=== PATIENT | female | born 1955 | race Caucasian/White ===

== ENCOUNTER 2025-08-22 08:52 | Observation (INO) ==
--- NOTE | 2025-08-22 09:45 | Emergency Department Note ---
Impression & Plan BREWSTER (dyspnea on exertion), Palpitation, Fatigue, Elevated troponin ED Provider Note ED Provider Note NAME: JOHNNIE SERRANO AGE:70 SEX: Female : 1955 ARRIVES VIA: Private vehicle INFORMANT: Patient ED PROVIDER(s): Jazmyn Armenta DO CHIEF COMPLAINT: Shortness of breath, palpitations, fatigue HPI: This is a 70-year-old female who presents emergency department complaining x 3 days and increased shortness of breath with any exertion, increased fatigue and generalized weakness Has a sense of palpitations. Patient denies any overt chest pain or pressure. Patient states she has had prior similar episodes and has been evaluated by cardiology. Patient states she had a stress test done about a year ago. She has also previously worn a heart monitor. Patient states she also has a history of blood clots and does take Eliquis daily. She denies any recent fevers, chills, or URI symptoms. She has no recent leg swelling, no recent travel. No change in bowel or bladder function. Patient states yesterday she did note some discomfort across her upper shoulders bilaterally. PAST MEDICAL HISTORY:See Below PAST SURGICAL HISTORY:See Below FAMILY HISTORY:See Below SOCIAL HISTORY:See Below HOME MEDICATIONS:See Below ALLERGIES:See Below VITALS:See Below PHYSICAL EXAMINATION: GENERAL: alert, well appearing, well nourished, no distress, non-toxic EYE EXAM: normal conjunctiva, PERRL and EOM's grossly intact OROPHARYNX: no exudate, no erythema, lips, buccal mucosa, and tongue normal and mucous membranes are moist NECK: supple, no nuchal rigidity, no adenopathy, non-tender, FROM LUNGS: Clear to auscultation. Normal chest wall mechanics, no w/r/r HEART: no murmurs, S1 normal and S2 normal, no reproducible pain with palpation ABDOMEN: abdomen soft, non-tender, normo-active bowel sounds, no masses, no rebound or guarding. SKIN: no rashes, petechiae, orbruising UPPER EXTREMITIES: upper extremities are grossly normal. FROM, nml pulses b/l. LOWER EXTREMITIES: No pitting edema. FROM, nml pulses b/l. NEURO EXAM: Normal sensorium, cranial nerves II-XII grossly intact, normal speech, no facial droop,nogross weakness of arms, no gross weakness of legs. Gross sensation intact. No ataxia. Vital Signs: reviewed and remarkable Differential Diagnosis: pneumonia, bronchitis, COPD/Asthma exacerbation, pneumothorax, pulmonary embolism, congestive heart failure, acute coronary syndrome, as well as others were considered MEDICAL DECISION MAKING: This is a 70-year-old female who presents to the Emergency Department with 3 days of exertional dyspnea, palpitations, and fatigue. Patient does follow with cardiology. She was afebrile and vital signs were stable. Labs drawn and sent, IV established, EKG and CXR performed and interpreted at bedside, and patient placed on telemetry. Patient with no symptoms while at rest. I did review outpatient nuclear stress test from a year ago. No acute EKG changes noted. First troponin noted to be mildly elevated. Patient updated on all results, repeat troponin drawn and sent and was already downtrending however given risk factors, prior slight abnormality noted on the nuclear stress test, and difficulty evaluating for any EKG changes due to the known right bundle branch block, case was discussed with on-call [facility] cardiology who did come to bedside and evaluate the patient as well. Cardiology recommended further inpatient evaluation and likely need for cardiac catheterization. Patient is in agreement with this plan. Discussed with the hospitalist team for inpatient mgmt. Consultation(s): 1300: Discussed with Dr. Green, cardiology. 1336: Discussed with Dr. Green who came and evaluated the patient at bedside. 1358: Discussed with [facility] hospitalist team, for additional evaluation and mgmt. ER Treatment Provided: See below Diagnostics Interpreted By Me: -ECG: Normal sinus at 76, right axis, left bundle branch block, nonspecific ST/T wave changes, EKG unchanged from April 02, 2024 -Cardiac Monitoring: An order was placed for continuous cardiac monitoring. The monitor shows a rate of 78 with normal sinus rhythm. -Laboratory studies: As stated above and show below. -Imaging studies: X-ray Chest: A single view study of the chest was reviewed and was negative for cardiomegaly, focal infiltrate, effusion, pulmonary edema, or wide mediastinum. Triage Nursing Note Reviewed Prior/Outside Records Reviewed - cardiology office note from June 2025 reviewed Past Med/Surg History Problem List (Updated 08/22/25 @ 14:54 by Jazmyn Armenta DO) Elevated troponin (Acute) Fatigue (Acute) Palpitation (Acute) BREWSTER (dyspnea on exertion) (Acute) Medical History LBBB (left bundle branch block) Paroxysmal atrial fibrillation Dyslipidemia History of DVT (deep vein thrombosis) History of TIA (transient ischemic attack) Essential hypertension Prediabetes PVCs (premature ventricular contractions) Rosacea MAHAMED (stress urinary incontinence, female) Surgical History S/P wisdom tooth extraction S/P breast biopsy S/P tonsillectomy Family History Mother Stroke Other Breast cancer Lung cancer Social History Smoking Status: Former smoker Preferred Language: Portuguese Feels Safe at Home: Yes Home Meds Home Medications Medication Instructions Recorded Confirmed apixaban 5 mg tablet (Eliquis) 5 mg PO HS 08/22/25 08/22/25 atorvastatin 10 mg tablet 10 mg PO QAM 08/22/25 08/22/25 bimatoprost 0.01 % eye drops 1 drp ophthalmic (eye) HS 08/22/25 08/22/25 (Lumigan) brimonidine 0.1 % eye drops 1 drp ophthalmic (eye) BID 08/22/25 08/22/25 fluticasone propionate 50 2 spray intranasal DAILY 08/22/25 08/22/25 mcg/actuation nasal spray,suspension losartan 50 mg-hydrochlorothiazide 1 tab PO QAM 08/22/25 08/22/25 12.5 mg tablet Results & Data (ED) Vital Signs Vital Signs - 24 hr 08/22/25 08:58 08/22/25 09:21 08/22/25 09:36 Temperature 36.6 C Temperature Source Temporal Artery Scan Pulse Rate 86 75 Pulse Rate [Apical] Respiratory Rate 14 Respiratory Effort / Characteristics Respiratory Depth Respiratory Pattern Blood Pressure 134/83 Blood Pressure [Right Arm] Blood Pressure Mean 100 Blood Pressure Mean [Right Arm] Pulse Oximetry 96 98 Oxygen Delivery Method Room Air Room Air Sepsis New/Unexplained Change in Mental Status No Sepsis Action Taken by Nursing No Action Required 08/22/25 11:00 08/22/25 13:51 08/22/25 14:39 Temperature Temperature Source Pulse Rate 79 71 Pulse Rate [Apical] 72 Respiratory Rate 16 17 Respiratory Effort / Characteristics Non-Labored Spontaneous Respiratory Depth Normal Respiratory Pattern Regular Blood Pressure 196/91 H Blood Pressure [Right Arm] 149/97 H Blood Pressure Mean Blood Pressure Mean [Right Arm] 114 Pulse Oximetry 96 96 Oxygen Delivery Method Room Air Sepsis New/Unexplained Change in Mental Status Sepsis Action Taken by Nursing Laboratory Data 08/22/25 09:15 08/22/25 09:15 Lab Results 08/22/25 08/22/25 Range/Units 09:15 11:55 WBC 3.71 L (4.8-10.8) K/ul RBC 4.16 L (4.20-5.40) M/uL Hgb 12.6 (12.0-16.0) g/dL Hct 37.5 (37.0-47.0) % MCV 90.1 (80.0-100.0) fL MCH 30.3 (25.0-34.0) pg MCHC 33.6 (32.0-36.0) g/dL RDW Std Deviation 43.1 (36.4-46.3) fL RDW Coeff of Jovon 13.0 (11.5-14.5) % Plt Count 198 (130-400) K/uL MPV 9.8 (9.4-12.4) fL Immature Gran % (Auto) 0.5 % Neut % (Auto) 63.6 % Lymph % (Auto) 23.2 % [place] % (Auto) 10.0 % Eos % (Auto) 2.2 % Baso % (Auto) 0.5 % Neut # (Auto) 2.36 (1.40-6.50) K/uL Lymph # (Auto) 0.86 L (1.20-3.40) K/uL [place] # (Auto) 0.37 (0.11-0.59) K/uL Eos # (Auto) 0.08 (0.00-0.50) K/uL Baso # (Auto) 0.02 (0.00-0.20) K/uL Immature Gran # (Auto) 0.02 (0.01-0.20) K/uL PT 10.7 (9.0-12.0) Seconds INR 1.0 (0.9-1.1) Sodium 137 (136-145) mmol/L Potassium 4.1 (3.5-5.1) mmol/L Chloride 101 (98-107) mmol/L Carbon Dioxide 28 (21-32) mmol/L Anion Gap 8 (3-11) BUN 16 (6-23) mg/dl Creatinine 0.76 (0.6-1.2) mg/dl Est Cr Clr Drug Dosing 65.6 ml/min eGFR 83.20 BUN/Creatinine Ratio 21.1 H (10-20) Glucose 140 H (70-99(Fasting)) mg/dl Calcium 9.4 (8.6-10.3) mg/dl Magnesium 2.1 (1.7-2.4) mg/dl Total Bilirubin 0.5 (0.2-1.0) mg/dl AST 23 (13-39) U/L ALT 24 (7-52) U/L Alkaline Phosphatase 73 (34-104) U/L Troponin I High Sens 32.5 H 29.9 H (0-14) pg/ml Total Protein 7.4 (6.0-8.3) gm/dl Albumin 4.5 (3.4-5.0) gm/dl Globulin 2.9 (2.5-4.0) gm/dl Albumin/Globulin Ratio 1.6 (0.9-2) Lipase 26 (11-82) U/L TSH 2.391 (0.300-4.500) uIu/ml Imaging Data Radiologist's Impression: Chest X-Ray 08/22/25 09:30 SINGLE VIEW CHEST CLINICAL HISTORY: Dyspnea FINDINGS: An AP, portable, upright chest radiograph is obtained. No prior studies are available for comparison at the time of dictation. The heart is mildly enlarged. The pulmonary vasculature is noncongested. Nonspecific interstitial thickening is likely chronic. There is mild bibasilar scarring/atelectasis. No airspace consolidation or large pleural effusion is identified. No pneumothorax is seen. The skeletal structures are osteopenic. The bony thorax is grossly intact. IMPRESSION: No acute cardiopulmonary abnormality is identified. ACT 112: Negative or not required by law. Electronically signed by: Evaristo Guzman M.D. 08/22/2025 10:28 AM Discharge Plan Visit Data Chief Complaint: Cardiac Assessment Stated Complaint: HEART ISSUES, REF BY DOC ED Provider: Jazmyn Armenta Discharge Problem: BREWSTER (dyspnea on exertion), Palpitation, Fatigue, Elevated troponin Patient Disposition: Being Evaluated by Hospitalist Condition: Fair Discharge Instructions Interventions: ED Discharge Assessment Last Done: 08/22/25 14:39 Forms Stand Alone Forms: [facility] Prescriptions Prescriptions: No Action atorvastatin 10 mg tablet 10 mg PO QAM losartan-hydrochlorothiazide 50-12.5 mg tablet 1 tab PO QAM fluticasone propionate 50 mcg/actuation spray,suspension 2 spray INTRANASAL DAILY brimonidine 0.1 % drops 1 drp ophthalmic (eye) BID Lumigan 0.01 % drops 1 drp ophthalmic (eye) HS Eliquis 5 mg tablet 5 mg PO HS Referrals Referrals: PCP,NO [Physician] -
[2025-08-22 09:49] LABS: Hematocrit (blood only) 37.5 % (37.0-47.0); Hemoglobin 12.6 g/dL (12.0-16.0); Immature Granulocytes # (auto) 0.02 K/uL (0.01-0.20); Immature Granulocytes % (auto) 0.5 %; Mean Corpuscular Hemoglobin 30.3 pg (25.0-34.0); Mean Corpuscular Volume 90.1 fL (80.0-100.0); Platelet Count 198 K/uL (130-400); RDW Standard Deviation 43.1 fL (36.4-46.3); Red Blood Count 4.16 M/uL (4.20-5.40); White Blood Count 3.71 K/ul (4.8-10.8)
[2025-08-22 09:57] LABS: Alanine Aminotransferase 24.0 U/L (7-52); Albumin Globulin Ratio 1.6 (0.9-2); Albumin Level 4.5 gm/dl (3.4-5.0); Alkaline Phosphatase 73.0 U/L (34-104); Anion Gap 8.0 (3-11); Bilirubin,Total 0.5 mg/dl (0.2-1.0); Blood Urea Nitrogen 16.0 mg/dl (6-23); Calcium 9.4 mg/dl (8.6-10.3); Carbon Dioxide 28.0 mmol/L (21-32); Chloride 101.0 mmol/L (98-107); Creatinine Clr Calc Pharmacy 65.6 ml/min; Globulin 2.9 gm/dl (2.5-4.0); Glucose 140.0 mg/dl (70-99(Fasting)); Lipase 26.0 U/L (11-82); Magnesium 2.1 mg/dl (1.7-2.4); Potassium 4.1 mmol/L (3.5-5.1); Sodium 137.0 mmol/L (136-145); Total Protein 7.4 gm/dl (6.0-8.3)
[2025-08-22 10:12] LABS: Thyroid Stimulating Hormone 2.391 uIu/ml (0.300-4.500)
[2025-08-22 10:20] LABS: INR 1.0 (0.9-1.1); Prothrombin Time 10.7 Seconds (9.0-12.0)
--- NOTE | 2025-08-22 10:29 | XRay Report ---
SINGLE VIEW CHEST CLINICAL HISTORY: Dyspnea FINDINGS: An AP, portable, upright chest radiograph is obtained. No prior studies are available for c omparison at the time of dictation. The heart is mildly enlarged. The pulmonary vasculature is noncon gested. Nonspecific interstitial thickening is likely chronic. There is mild bibasilar scarring/atele ctasis. No airspace consolidation or large pleural effusion is identified. No pneumothorax is seen. T he skeletal structures are osteopenic. The bony thorax is grossly intact. IMPRESSION: No acute cardiopulmonary abnormality is identified. ACT 112: Negative or not required by law. Electronically signed by: Evaristo Guzman M.D. 08/22/2025 10:28 AM
--- NOTE | 2025-08-22 14:07 | History & Physical Report ---
Date of Service August 22, 2025 Assessment & Plan (1) BREWSTER (dyspnea on exertion): (2) Palpitation: (3) Elevated troponin: (4) Fatigue: (5) LBBB (left bundle branch block): (6) Paroxysmal atrial fibrillation: (7) Dyslipidemia: (8) Essential hypertension: Plan This is a 70 y/o female with HTN, dyslipidemia, PAF on chronic AC ([id number] score of 5), hx TIA, hx DVT, prediabetes, and other history as outlined below who presented to the ED today with exertional dyspnea, chest pressure and palpitations that have worsened over the last three days. Pt had a cardiac work- up negative for acute ischemia about a year ago but notes evolution of her symptoms since then. Initial troponin in the ED was 32.5, repeat 29.9. EKG personally reviewed, shows known LBBB, NSR at present, no acute ischemic changes noted. ED physician discussed case with cardiology who evaluated the patient and recommended admission for monitoring and probable cardiac cath tomorrow. Clinical picture concerning for unstable angina #Exertional dyspnea - worsening #Chest discomfort/pressure #Mildly elevated troponin - Admit to PCU - Cardiology consulted noted and appreciated - Hold Eliquis tonight and tomorrow AM, NPO after midnight for planned cardiac cath tomorrow - Trend troponin - Lipid panel, A1c in the AM - Beta-amna added by cardiology - AM labs - CBC, BMP - Update ECHO #Paroxysmal atrial fibrillation - Anticoagulation on hold for cardiac cath tomorrow - Cardiology following #Dyslipidemia - Lipid panel in the AM - Continue statin #Hypertension - Chronic, medications being adjusted - continue to monitor Pt seen and reviewed with collaborating physician, Dr. Staples. Plan of care discussed and as outlined above. Code status: full code DVT prophylaxis: SCDs for now, Eliquis on hold due to cath tomorrow Josephine Valdez PA-C History of Present Illness Chief Complaint: palpitations, short of breath with exertion Primary Care Provider: Tono Shepard DO This is a 70 y/o female with HTN, dyslipidemia, PAF on chronic AC ([id number] score of 5), hx TIA, hx DVT, prediabetes, and other history as outlined below who presented to the ED today with exertional dyspnea, chest pressure and palpitations. Pt reports originally starting with intermittent dyspnea with stairs several months ago, for which she had a nuclear stress test that was negative for ischemia. Since then, symptoms have been slowly progressive, but ma inly with exertion. She has noted that she is walking for exercise less frequently due to her symptoms. Over the last three days, she has noticed a significant worsening of symptoms, specifically reporting almost constant chest pressure and discomfort though it does worsen with exertion. She has also had episodes of palpitations with irregular heartbeat and racing heart (rate last night in the 110s). Symptoms have been worse at night and have interfered with her sleep, which she attributes to being more aware of the symptoms and thus anxious about them. She has also noticed that she has felt hot the last few nights. She denies sharp chest pain, dizziness, syncope, nausea, edema, or orthopnea. She notes a mild cough over the last week but is unsure it is related as she has chronic issues with allergies and sinus drainage. Her father of an UT but it was attributed to a viral infection. No other known history of heart disease in the family. Pharmacologic Nuclear Stress Report 07/30/24 - negative for inducible ischemia, normal myocardial thickening and wall motion, LVEF 53% ECHO 06/18/24 - normal LV cavity size, LV wall thickness moderately increased (concentric), LV outflow tract is narrowed but nonobstructive, septal motion is abnormal c/w LBBB, regional LV wall motion o/w normal, LVEF 60-64%, mildly abnormal LV diastolic function (grade I), mild aortic valve sclerosis, trace mitral insufficiency Allergies Allergy/AdvReac Type Severity Reaction Status Date / Time mupirocin Allergy Rash Verified 08/22/25 15:08 nickel Allergy Itching Verified 08/22/25 15:04 mussels AdvReac Vomiting Verified 08/22/25 15:04 Home Medications Medication Instructions Recorded Confirmed Type apixaban 5 mg tablet (Eliquis) 5 mg PO BID 08/22/25 08/22/25 History atorvastatin 10 mg tablet 10 mg PO QAM 08/22/25 08/22/25 History bimatoprost 0.01 % eye drops 1 drp OPB HS 08/22/25 08/22/25 History (Maged) brimonidine 0.1 % eye drops 1 drp OPB BID 08/22/25 08/22/25 History fluticasone propionate 50 2 spray intranasal DAILY 08/22/25 08/22/25 History mcg/actuation nasal spray,suspension loratadine 10 mg tablet 10 mg PO HS 08/22/25 08/22/25 History losartan 50 mg-hydrochlorothiazide 1 tab PO QAM 08/22/25 08/22/25 History 12.5 mg tablet Past Med/Surg History Problem List (Updated 08/22/25 @ 14:54 by Jazmyn Armenta DO) Elevated troponin (Acute) Fatigue (Acute) Palpitation (Acute) BREWSTER (dyspnea on exertion) (Acute) Medical History LBBB (left bundle branch block) Paroxysmal atrial fibrillation Dyslipidemia History of DVT (deep vein thrombosis) History of TIA (transient ischemic attack) Essential hypertension Prediabetes PVCs (premature ventricular contractions) Rosacea MAHAMED (stress urinary incontinence, female) Surgical History S/P wisdom tooth extraction S/P breast biopsy S/P tonsillectomy Family History Mother Stroke Other Breast cancer Lung cancer Social History Smoking Status: Former smoker Tobacco Type: Cigarettes Smoking End Date: 1974; Hx Alcohol Use: Yes Alcohol type: wine Hx Substance Use: No Preferred Language: Kiswahili Communication Ability: Effective [employer] Operator Required: No Beliefs That Will Affect Care: None Current Living Situation: Spouse Feels Safe at Home: Yes Safety Concerns: Feels Safe At This Time Assistive Devices: None Review of Systems Review of Systems: All systems reviewed & are unremarkable except as noted in Subjective Physical Exam Physical Exam: General: awake, alert, NAD HEENT: no scleral icterus, moist oral mucosa Neck: supple, trachea midline Heart: RRR Lungs: CTA bilaterally Abdomen: soft, NT, +BS Extremities: no pedal edema, distal pulses intact and equal Skin: warm, dry, no jaundice or rashes Neurologic: Ox3, no confusion or dysarthria, moving all extremities, no focal deficits Results & Data Results & Data Vital Signs (Past 12 Hours) Vital Signs Temp Pulse Pulse Resp BP BP Pulse Ox 08/22/25 13:51 79 08/22/25 11:00 72 16 149/97 H 96 08/22/25 09:36 75 08/22/25 09:21 98 08/22/25 08:58 36.6 C 86 14 134/83 96 O2 Del Method 08/22/25 13:51 08/22/25 11:00 Room Air 08/22/25 09:36 08/22/25 09:21 Room Air 08/22/25 08:58 Room Air Laboratory Results Lab Results 08/22/25 08/22/25 Range/Units 09:15 11:55 WBC 3.71 L (4.8-10.8) K/ul RBC 4.16 L (4.20-5.40) M/uL Hgb 12.6 (12.0-16.0) g/dL Hct 37.5 (37.0-47.0) % MCV 90.1 (80.0-100.0) fL MCH 30.3 (25.0-34.0) pg MCHC 33.6 (32.0-36.0) g/dL RDW Std Deviation 43.1 (36.4-46.3) fL RDW Coeff of Jovon 13.0 (11.5-14.5) % Plt Count 198 (130-400) K/uL MPV 9.8 (9.4-12.4) fL Immature Gran % (Auto) 0.5 % Neut % (Auto) 63.6 % Lymph % (Auto) 23.2 % [place] % (Auto) 10.0 % Eos % (Auto) 2.2 % Baso % (Auto) 0.5 % Neut # (Auto) 2.36 (1.40-6.50) K/uL Lymph # (Auto) 0.86 L (1.20-3.40) K/uL [place] # (Auto) 0.37 (0.11-0.59) K/uL Eos # (Auto) 0.08 (0.00-0.50) K/uL Baso # (Auto) 0.02 (0.00-0.20) K/uL Immature Gran # (Auto) 0.02 (0.01-0.20) K/uL PT 10.7 (9.0-12.0) Seconds INR 1.0 (0.9-1.1) Sodium 137 (136-145) mmol/L Potassium 4.1 (3.5-5.1) mmol/L Chloride 101 (98-107) mmol/L Carbon Dioxide 28 (21-32) mmol/L Anion Gap 8 (3-11) BUN 16 (6-23) mg/dl Creatinine 0.76 (0.6-1.2) mg/dl Est Cr Clr Drug Dosing 65.6 ml/min eGFR 83.20 BUN/Creatinine Ratio 21.1 H (10-20) Glucose 140 H (70-99(Fasting)) mg/dl Calcium 9.4 (8.6-10.3) mg/dl Magnesium 2.1 (1.7-2.4) mg/dl Total Bilirubin 0.5 (0.2-1.0) mg/dl AST 23 (13-39) U/L ALT 24 (7-52) U/L Alkaline Phosphatase 73 (34-104) U/L Troponin I High Sens 32.5 H 29.9 H (0-14) pg/ml Total Protein 7.4 (6.0-8.3) gm/dl Albumin 4.5 (3.4-5.0) gm/dl Globulin 2.9 (2.5-4.0) gm/dl Albumin/Globulin Ratio 1.6 (0.9-2) Lipase 26 (11-82) U/L TSH 2.391 (0.300-4.500) uIu/ml Diagnostic Findings Chest X-Ray 08/22/25 09:30 SINGLE VIEW CHEST CLINICAL HISTORY: Dyspnea FINDINGS: An AP, portable, upright chest radiograph is obtained. No prior studies are available for comparison at the time of dictation. The heart is mildly enlarged. The pulmonary vasculature is noncongested. Nonspecific interstitial thickening is likely chronic. There is mild bibasilar scarring/atelectasis. No airspace consolidation or large pleural effusion is identified. No pneumothorax is seen. The skeletal structures are osteopenic. The bony thorax is grossly intact. IMPRESSION: No acute cardiopulmonary abnormality is identified. ACT 112: Negative or not required by law. Electronically signed by: Evaristo Guzman M.D. 08/22/2025 10:28 AM Supervising Physician Co-Signing Physician Notes Attending Addendum: Case reviewed with the advanced practitioner. I have personally performed a history and physical examination on the patient. I have reviewed the advanced practitioner's documentation on the date of service referenced in note, and I agree with, and take responsibility for the plan of care. please refer to her notes for full details patient seen and examined, records reviewed by myself as well on exam, patient seen resting in bed comfortable no chest pain, dyspnea, palpitations, dizziness no other symptoms VS noted and reviewed oriented x 3, not in distress, speaks in sentences with no effort nor accessory muscle use normal rate, regular rhythm, no murmurs clear breath sounds bilaterally non distended, soft, nontender no bipedal edema, erythema, warmth no neuro deficits all labs, imaging noted and reviewed ASSESSMENT AND PLAN> Fatigue, dyspnea on exertion, Chest pain possible unstable angina Chronic left bundle branch block Paroxysmal atrial fibrillation Hypertension Dyslipidemia - troponin 32.5, 29.9; EKG no signs of acute ischemia or infarct - For cardiac cath tomorrow Apixaban held Metoprolol p.o. initiated other diagnoses and plan of care as per advanced practitioner's notes I spent a total of 35 minutes coordinating, documenting, and providing care for this patient, excluding time spent in the performance of separately billed services or time spent by another provider/QHP. Maxi Staples MD
--- NOTE | 2025-08-22 14:42 | Cardiology Consultation ---
Date of Consultation August 22, 2025 Assessment & Plan (1) Fatigue: (2) Palpitation: (3) BREWSTER (dyspnea on exertion): (4) LBBB (left bundle branch block): (5) Paroxysmal atrial fibrillation: (6) Dyslipidemia: (7) History of TIA (transient ischemic attack): Plan Patient is a 70-year-old female with multiple cardiovascular risk factors recent change in functional capacity with marked fatigue exertional dyspnea and heart pounding worsening symptoms at night. No sustained tachyarrhythmias. Underlying issues include chronic left bundle branch block, paroxysmal atrial fibrillation, hypertension hyperlipidemia. Initial EKG in ER left bundle branch block and troponins mildly elevated. Currently asymptomatic. And further investigations limited by left bundle branch block, past borderline abnormal stress nuclear imaging with fixed apical defect. Given persistent sym ptoms, elevated question angina versus sensed ventricular ectopy will require further investigation Suggested proceeding with diagnostic cardiac catheterization with patient agreeable. Will hold apixaban tonight and in a.m. Add beta-amna to medical regimen History of Present Illness Reason for Consultation: Chest pressure, palpitations, elevated troponin Requesting Physician: Dr. Armenta [facility] of Present Illness Patient is a 70-year-old female with known cardiac concerns include 1. Left bundle branch block 2. Hypertension 3. Chronic chest pain, palpitations 4. Borderline abnormal stress nuclear imaging with fixed apical defect but no other perfusion abnormality 5. Paroxysmal atrial fibrillation on event monitor, chronic anticoagulation with Eliquis Patient presents now noting recent change in symptoms with increasing chest pressure and heart pounding. Symptoms worsened over the past 3 days persistent through the last evening. Not specifically worsened with short episodes of exertion. No dizziness lightheadedness syncope or near syncope. No fevers chills or unexplained infections. No bleeding difficulties. Mild low-grade cough minimally productive. No blood in urine or stool. Appetite and weight stable. Poor sleeping past 3 nights, Heart pounding, irregular with chest pressure resulting in ER presentation today. Did admit to a couple glasses of wine last night Initial EKG chronic left bundle branch block. Troponins mildly elevated Allergies Allergy/AdvReac Type Severity Reaction Status Date / Time mupirocin Allergy Rash Verified 08/22/25 15:08 nickel Allergy Itching Verified 08/22/25 15:04 mussels AdvReac Vomiting Verified 08/22/25 15:04 Home Medications Medication Instructions Recorded Confirmed Type apixaban 5 mg tablet (Eliquis) 5 mg PO BID 08/22/25 08/22/25 History atorvastatin 10 mg tablet 10 mg PO QAM 08/22/25 08/22/25 History bimatoprost 0.01 % eye drops 1 drp OPB HS 08/22/25 08/22/25 History (Lumigan) brimonidine 0.1 % eye drops 1 drp OPB BID 08/22/25 08/22/25 History fluticasone propionate 50 2 spray intranasal DAILY 08/22/25 08/22/25 History mcg/actuation nasal spray,suspension loratadine 10 mg tablet 10 mg PO HS 08/22/25 08/22/25 History losartan 50 mg-hydrochlorothiazide 1 tab PO QAM 08/22/25 08/22/25 History 12.5 mg tablet Patient History Medical History LBBB (left bundle branch block) Paroxysmal atrial fibrillation Dyslipidemia History of DVT (deep vein thrombosis) History of TIA (transient ischemic attack) Essential hypertension Prediabetes PVCs (premature ventricular contractions) Rosacea MAHAMED (stress urinary incontinence, female) Surgical History S/P wisdom tooth extraction S/P breast biopsy S/P tonsillectomy Family History Mother Stroke Other Breast cancer Lung cancer Social History Smoking Status: Former smoker Preferred Language: Irish Feels Safe at Home: Yes Review of Systems Review of Systems: All systems reviewed & are unremarkable except as noted in HPI & below Results & Data Vital Signs (Past 12 Hours) Vital Signs Temp Pulse Pulse Resp BP BP Pulse Ox 08/22/25 13:51 79 08/22/25 11:00 72 16 149/97 H 96 08/22/25 09:36 75 08/22/25 09:21 98 08/22/25 08:58 36.6 C 86 14 134/83 96 O2 Del Method 08/22/25 13:51 08/22/25 11:00 Room Air 08/22/25 09:36 08/22/25 09:21 Room Air 08/22/25 08:58 Room Air Laboratory Results Laboratory Results - last 24 hr 08/22/25 08/22/25 09:15 11:55 WBC 3.71 L RBC 4.16 L Hgb 12.6 Hct 37.5 MCV 90.1 MCH 30.3 MCHC 33.6 RDW Std Deviation 43.1 RDW Coeff of Jovon 13.0 Plt Count 198 MPV 9.8 Immature Gran % (Auto) 0.5 Neut % (Auto) 63.6 Lymph % (Auto) 23.2 [place] % (Auto) 10.0 Eos % (Auto) 2.2 Baso % (Auto) 0.5 Neut # (Auto) 2.36 Lymph # (Auto) 0.86 L [place] # (Auto) 0.37 Eos # (Auto) 0.08 Baso # (Auto) 0.02 Immature Gran # (Auto) 0.02 PT 10.7 INR 1.0 Sodium 137 Potassium 4.1 Chloride 101 Carbon Dioxide 28 Anion Gap 8 BUN 16 Creatinine 0.76 Est Cr Clr Drug Dosing 65.6 eGFR 83.20 BUN/Creatinine Ratio 21.1 H Glucose 140 H Calcium 9.4 Magnesium 2.1 Total Bilirubin 0.5 AST 23 ALT 24 Alkaline Phosphatase 73 Troponin I High Sens 32.5 H 29.9 H Total Protein 7.4 Albumin 4.5 Globulin 2.9 Albumin/Globulin Ratio 1.6 Lipase 26 TSH 2.391 Diagnostic Findings Echocardiogram 07/08/2024 Interpretation Summary The left ventricular cavity size is normal. The LV wall thickness is moderately increased (concentric). Left ventricular outflow tract is narrowed but nonobstructive The septal motion is abnormal consistent with left bundle branch block. The regional left ventricular wall motion is otherwise normal. The qualitative LV ejection fraction is 60-64% (normal). The left ventricular diastolic function is mildly abnormal (grade I). Mild aortic valve sclerosis is present. There is trace mitral insufficiency only ECG Additional Comments: Sinus rhythm with left bundle branch block, rate 76 bpm PG Care Time/CCT Total # of Minutes Spent Total Time Spent with Patient: Total time spent is greater than 50% in coordination of care (as documented) at patient's floor/unit and/or counseling patient: Coding Level of Care Code 32169 IN/OBS CONSULT LVL 5,80M Diagnoses Fatigue R53.83 Palpitation R00.2 BREWSTER (dyspnea on exertion) R06.09 LBBB (left bundle branch block) I44.7 Paroxysmal atrial fibrillation I48.0 Dyslipidemia E78.5 History of TIA (transient ischemic attack) Z86.73
[2025-08-22] MEDS ORDERED: NITROGLYCERIN SL 0.4 MG/TAB TAB SL PRN (16:17)
--- NOTE | 2025-08-22 17:01 | XCELERA ---
[id number]
[2025-08-22] MEDS ORDERED: LEVALBUTEROL 1.25 MG/3 ML NEB NEB PRN (19:30)
[2025-08-22] MEDS: LEVALBUTEROL 1.25 MG/3 ML NEB NEB STA (19:49)
[2025-08-22] MEDS: BIMATOPROST 0.01% OP SOLN 2.5 ML BTL OPB SCH (20:39)
[2025-08-22] MEDS: METOPROLOL TARTRATE 25 MG TAB PO SCH (20:39)
[2025-08-22] MEDS: guaiFENesin 600 MG TABCR PO SCH (20:39)
[2025-08-22] MEDS: LORATADINE 10 MG TAB PO SCH (20:39)
[2025-08-22 21:20] LABS: Influenza A virus by PCR Negative (Neg); Influenza B virus by PCR Negative (Neg); SARS CoV2 RNA(COVID-19) Ceph NEGATIVE (Negative)
[2025-08-23 07:43] LABS: Hematocrit (blood only) 36.3 % (37.0-47.0); Hemoglobin 12.6 g/dL (12.0-16.0); Immature Granulocytes # (auto) 0.00 K/uL (0.01-0.20); Immature Granulocytes % (auto) 0.0 %; Mean Corpuscular Hemoglobin 31.3 pg (25.0-34.0); Mean Corpuscular Volume 90.3 fL (80.0-100.0); Platelet Count 175 K/uL (130-400); RDW Standard Deviation 43.0 fL (36.4-46.3); Red Blood Count 4.02 M/uL (4.20-5.40); White Blood Count 3.02 K/ul (4.8-10.8)
[2025-08-23 07:59] LABS: Anion Gap 6.0 (3-11); Blood Urea Nitrogen 16.0 mg/dl (6-23); Calcium 9.2 mg/dl (8.6-10.3); Carbon Dioxide 31.0 mmol/L (21-32); Chloride 100.0 mmol/L (98-107); Cholesterol 222.0 mg/dl (0-200); Creatinine Clr Calc Pharmacy 60.7 ml/min; Glucose 128.0 mg/dl (70-99(Fasting)); HDL Cholesterol 63.0 mg/dl; Potassium 4.0 mmol/L (3.5-5.1); Sodium 137.0 mmol/L (136-145); Triglycerides 182.0 mg/dl (0-150)
[2025-08-23 08:04] LABS: Hemoglobin A1C 6.3 % (4.5-5.6)
[2025-08-23] MEDS: FLUTICASONE PROPIONATE NA SPR 16 GM BTL SCH (08:21)
[2025-08-23] MEDS: LOSARTAN POTASSIUM 50 MG TAB PO SCH (08:22)
[2025-08-23] MEDS: ATORVASTATIN 10 MG TAB PO SCH (08:22)
[2025-08-23] MEDS: ACETAMINOPHEN 325 MG TAB PO PRN (08:28)
--- NOTE | 2025-08-23 11:32 | Pre Anesthesia Assessment ---
Date of Service August 23, 2025 Pre Sedation Assessment Vital Signs Temp Pulse Pulse Resp BP Pulse Ox Pulse Ox 08/23/25 10:08 61 18 155/90 H 92 08/23/25 06:59 98.1 F 66 18 126/80 98 08/23/25 03:04 97.9 F 65 18 136/89 97 08/22/25 23:00 97.5 F L 68 18 120/76 93 08/22/25 22:12 84 08/22/25 19:58 98.2 F 91 H 20 132/83 97 08/22/25 19:50 99 H 16 96 08/22/25 17:00 75 08/22/25 16:34 99 08/22/25 16:18 97.7 F 67 20 177/94 H 99 08/22/25 14:54 72 19 144/62 H 96 08/22/25 13:51 79 O2 Del Method O2 Del Method 08/23/25 10:08 Room Air 08/23/25 06:59 Room Air 08/23/25 03:04 Room Air 08/22/25 23:00 Room Air 08/22/25 22:12 08/22/25 19:58 Room Air 08/22/25 19:50 Room Air 08/22/25 17:00 08/22/25 16:34 Room Air 08/22/25 16:18 Room Air 08/22/25 14:54 Room Air 08/22/25 13:51 Cardiovascular RRR, no murmur, no edema Respiratory normal respiratory effort, lungs clear to auscultation Pre-Sedation Airway Assessment Smoking Status: Former smoker Hx Sleep Apnea: No Hx Difficult Intubation: No Short, Thick Neck: No Thyromental Distance: < 3.5 Finger Breadths Oral Cavity: + WNL Mallampati Class: II ASA: ASA2 NPO Status Date of Last Intake of Fluids: 08/22/25 Time of Last Intake of Fluids: 23:00 Date of Last Intake of Solid Food: 08/22/25 Time of Last Intake of Solid Foods: 23:00 Procedure Planning Contraindications for Sedation: none Current Medications Reviewed: Yes Notes The planned sedation has been discussed with the patient. Informed Consent was obtained. I have identified the patient, determined the appropriateness of sedation and have assessed the patient immediately prior to the procedure. All medicine(s) and interventions are by my order.
[2025-08-23] MEDS: MIDAZOLAM HCL 1 MG/ML 2ML VIAL ONE (12:03)
[2025-08-23] MEDS: HEPARIN (PORCINE) 1000 UNIT/ML 10 ML (CATH LAB USE ONLY) ONE (12:05)
[2025-08-23] MEDS: OPTIRAY 350 ONE (12:06)
[2025-08-23] MEDS: niCARdipine 2,000 MCG/20 ML SYR ONE (12:07)
[2025-08-23] MEDS: NITROGLYCERIN/D5W 100MCG/ML 20ML SYR ONE (12:08)
--- NOTE | 2025-08-23 12:10 | Post Anesthesia Assessment ---
Date of Service August 23, 2025 Post Sedation Assessment Vital Signs Temp Pulse Pulse Resp BP Pulse Ox Pulse Ox 08/23/25 10:08 61 18 155/90 H 92 08/23/25 06:59 98.1 F 66 18 126/80 98 08/23/25 03:04 97.9 F 65 18 136/89 97 08/22/25 23:00 97.5 F L 68 18 120/76 93 08/22/25 22:12 84 08/22/25 19:58 98.2 F 91 H 20 132/83 97 08/22/25 19:50 99 H 16 96 08/22/25 17:00 75 08/22/25 16:34 99 08/22/25 16:18 97.7 F 67 20 177/94 H 99 08/22/25 14:54 72 19 144/62 H 96 08/22/25 13:51 79 O2 Del Method O2 Del Method 08/23/25 10:08 Room Air 08/23/25 06:59 Room Air 08/23/25 03:04 Room Air 08/22/25 23:00 Room Air 08/22/25 22:12 08/22/25 19:58 Room Air 08/22/25 19:50 Room Air 08/22/25 17:00 08/22/25 16:34 Room Air 08/22/25 16:18 Room Air 08/22/25 14:54 Room Air 08/22/25 13:51 Recovery Score Activity: Moves 4 extremities Respiration: Deep Breath/Cough Circulation: +/-20% PreAnes Value Consciousness: Fully Awake Oxygen Saturation: O2 needed for >90% Discharge Sedation Level of Care: Fast Track Phase II
--- NOTE | 2025-08-23 12:21 | Cardiology Progress Note ---
Date of Service August 23, 2025 Assessment & Plan (1) Fatigue: (2) Palpitation: (3) BREWSTER (dyspnea on exertion): (4) LBBB (left bundle branch block): (5) Paroxysmal atrial fibrillation: (6) Dyslipidemia: (7) History of TIA (transient ischemic attack): Plan Patient is a 70-year-old female with multiple cardiovascular risk factors recent change in functional capacity with marked fatigue exertional dyspnea and heart pounding worsening symptoms at night. No sustained tachyarrhythmias. Underlying issues include chronic left bundle branch block, paroxysmal atrial fibrillation, hypertension hyperlipidemia. Initial EKG in ER left bundle branch block and troponins mildly elevated. Currently asymptomatic. And further investigations limited by left bundle branch block, past borderline abnormal stress nuclear imaging with fixed apical defect. Given persistent symptoms, elevated question angina versus sensed ventricular ectopy will require further investigation 08/23/2025 Patient clinically improved underwent diagnostic coronary angiography today demonstrating normal coronary arteries Echocardiogram with left hypertrophy and basilar septal thickening Impression 1. Symptomatic sensed ventricular ectopy 2. Falsely elevated troponin 3. Paroxysmal atrial fibrillation 4. Chronic left bundle branch block Plan Observe postcardiac catheterization. May be discharged to home later today with post catheter instructions no strenuous activities or vigorous use of right hand x 3 days Continue metoprolol to tartrate 25 mg twice per day on discharge No changes on other medications May resume apixaban in a.m. Follow-up cardiology 1 month Admission and Anticipated Discharge Date Admission Date: August 22, 2025 Subjective Patient was seen and examined after diagnostic coronary angiography.. Patient improved last evening after initiation of beta-amna therapy. No further chest pains, tachypalpitations. Telemetry without sustained arrhythmias. No dizziness or lightheadedness. Coronary angiography without coronary artery disease Review of Systems Review of Systems: All systems reviewed & are unremarkable except as noted in Subjective Physical Exam Constitutional: WD/WN, vitals as above Eyes: PERRL, conjunctivae normal, anicteric sclerae ENMT: external ear and nose normal, oropharynx normal Neck: trachea midline, no thyromegaly Respiratory: normal respiratory effort, lungs clear to auscultation Cardiovascular: Rate/Rhythm: regular rate and regular rhythm Heart Sounds: normal S1 and normal S2; no murmur Vessels: radial pulses present ( Right radial access site with compression device); no JVD Extremities: no edema Gastrointestinal (Abdomen): normal bowel sounds, soft, nontender, no hepatosplenomegaly Musculoskeletal: no cyanosis or clubbing, extremities motor strength 5/5 Results & Data Vital Signs (Past 12 Hours) Vital Signs Temp Pulse Resp BP Pulse Ox O2 Del Method 08/23/25 10:08 61 18 155/90 H 92 Room Air 08/23/25 06:59 36.7 C 66 18 126/80 98 Room Air 08/23/25 03:04 36.6 C 65 18 136/89 97 Room Air Laboratory Results Laboratory Results - last 24 hr 08/22/25 08/22/25 08/23/25 11:55 20:32 07:24 WBC 3.02 L RBC 4.02 L Hgb 12.6 Hct 36.3 L MCV 90.3 MCH 31.3 MCHC 34.7 RDW Std Deviation 43.0 RDW Coeff of Jovon 13.0 Plt Count 175 MPV 9.7 Immature Gran % (Auto) 0.0 Neut % (Auto) 34.8 Lymph % (Auto) 47.4 [place] % (Auto) 15.2 Eos % (Auto) 2.3 Baso % (Auto) 0.3 Neut # (Auto) 1.05 L Lymph # (Auto) 1.43 [place] # (Auto) 0.46 Eos # (Auto) 0.07 Baso # (Auto) 0.01 Immature Gran # (Auto) 0.00 L Sodium 137 Potassium 4.0 Chloride 100 Carbon Dioxide 31 Anion Gap 6 BUN 16 Creatinine 0.82 Est Cr Clr Drug Dosing 60.7 eGFR 75.95 BUN/Creatinine Ratio 19.5 Glucose 128 H Estimat Average Glucose 134 Hemoglobin A1c 6.3 H Calcium 9.2 Troponin I High Sens 29.9 H Triglycerides 182 H Cholesterol 222 H LDL Cholesterol, Calc 123 VLDL Cholesterol, Calc 36 H HDL Cholesterol 63 Cholesterol/HDL Ratio 3.5 SARS-CoV-2 (PCR) NEGATIVE Influenza Type A (PCR) Negative Influenza Type B (PCR) Negative RSV (RT-PCR) Negative Diagnostic Findings EKG 08/23/2025 normal sinus rhythm at 64 bpm with left bundle branch block configuration PG Care Time/CCT Total # of Minutes Spent Total Time Spent with Patient: Total time spent is greater than 50% in coordination of care (as documented) at patient's floor/unit and/or counseling patient: Coding Level of Care Code 76842 SUB INP/OBS CARE 3/50MIN Diagnoses Fatigue R53.83 Palpitation R00.2 BREWSTER (dyspnea on exertion) R06.09 LBBB (left bundle branch block) I44.7 Paroxysmal atrial fibrillation I48.0 Dyslipidemia E78.5 History of TIA (transient ischemic attack) Z86.73
--- NOTE | 2025-08-23 12:26 | Cardiac Catheterization ---
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 Cardiac Status Clinical evaluation leading to the procedure CAD Presenation: Unstable angina Diagnostic Physicians Name: David Heck MD Closure Device Recommendations: Medical Therapy and/or Counseling Cardiac Cath Procedure Full Procedure Date August 23, 2025 Pre-Procedure Diagnosis Pre-Procedure Diagnosis: Angina AUC Score AUC Score: 7 Post-Procedure Diagnosis Post-Procedure Diagnosis: Normal Coronary Arteries and Normal Intracardiac Pressures Procedure(s) Performed Procedure(s) Performed: Coronary Angiography and Left Heart Cath Sorting Machine Operator David Heck MD Baby Doctor(s) Renny Estimated Blood Loss Estimated Blood Loss: 10 Medication(s) Medication(s): Fentanyl, Heparin, Lidocaine 1%, Nicardipine, Nitroglycerin and Versed Summary of Findings Indication: Suspected ACS Access: 6 Fr slender right radial artery Catheters: [place] Findings: LM -normal caliber, no significant disease. LAD -medium caliber, gives off large branching first septal. Just after septal some luminal irregularities. Remainder of LAD without significant disease and tapers prior to apex. Circumflex -medium caliber, gives off 2 high OM's. Remainder of AV groove circumflex small without significant disease. Medium OM 2 with proximal luminal irregularities, tortuous with some myocardial bridging. RCA -dominant, large caliber, angiographically normal. Medium caliber RPDA and PLB without significant disease. LVEDP -10 Arterial Closure: TR band Summary: 1. Angiographically normal coronary arteries 2. Normal intracardiac filling pressure Recommendations: Continued ASCVD risk factor modification per Dr. 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 Any exceptions are noted below. [facility] Card Cath Procedure Codes Cardiac Catheterization Procedure 1: Cardiovascular Cath Procedures: 14668 Coronaries and LHC (+/-LV) PG Care Time/CCT Total # of Minutes Spent Total Time Spent with Patient: Total time spent is greater than 50% in coordination of care (as documented) at patient's floor/unit and/or counseling patient:
[2025-08-23 12:58] VITALS: RESP 18; TEMP 97.2
--- NOTE | 2025-08-23 14:23 | Discharge Summary ---
Discharge Summary Date of Service August 23, 2025 Principal Dx & Hospital Course #1 = Principal Diagnosis (1) Ventricular ectopy: (2) Elevated troponin: (3) Paroxysmal atrial fibrillation: (4) LBBB (left bundle branch block): (5) Dyslipidemia: (6) Prediabetes: Plan Patient 70-year-old female who presents to the emergency room with complaints of exertional dyspnea, chest pressure and some palpitations. She has been having the symptoms intermittently for several months. She had undergone outpatient stress test which was negative for ischemia. The last 3 nights his symptoms have become significantly more noticeable and she felt as though her heart was racing during the night. This interrupted her sleep. In the emergency room her workup was significant for mildly elevated troponin. Due to this she was referred for further evaluation. Patient was admitted to the monitored setting. Cardiology consultation was obtained. There was no significant changes on her EKG, however she has a chronic left bundle branch block. There were no tachyarrhythmias noted on telemetry monitoring. Echocardiogram was performed and showed a normal ejection fraction. Based on patient's history and symptoms, cardiology recommended proceeding with cardiac catheterization. She is also started on metoprolol to address her symptomatic palpitations. It is presumed that she may be having some ventricular ectopy. Patient underwent cardiac catheterization. There was no significant coronary vessel stenosis and did not require any interventions. Her postcardiac catheterization course was uneventful. Patient reported noticing a significant improvement in her symptoms with the initiation of metoprolol. Cardiology recommended continuing the metoprolol. She will continue her other outpatient medications. She will be ab le to be discharged home after her postcardiac cath course. 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 Patient did have noted elevated glucose here in hospital. Hemoglobin A1c mildly elevated indicating prediabetes. Recommend she continue to follow with PCP and consider initiating dietary medication interventions if determined to be appropriate. Notes For Next Care Provider Patient has prediabetes may need to consider medication intervention in addition to dietary changes Medication Changes From Visit Metoprolol twice daily Admission HPI Per Admitting Provider This is a 70 y/o female with HTN, dyslipidemia, PAF on chronic AC ([id number] score of 5), hx TIA, hx DVT, prediabetes, and other history as outlined below who presented to the ED today with exertional dyspnea, chest pressure and palpitations. Pt reports originally starting with intermittent dyspnea with stairs several months ago, for which she had a nuclear stress test that was negative for ischemia. Since then, symptoms have been slowly progressive, but mainly with exertion. She has noted that she is walking for exercise less frequently due to her symptoms. Over the last three days, she has noticed a significant worsening of symptoms, specifically reporting almost constant chest pressure and discomfort though it does worsen with exertion. She has also had episodes of palpitations with irregular heartbeat and racing heart (rate last night in the 110s). Symptoms have been worse at night and have interfered with her sleep, which she attributes to being more aware of the symptoms and thus anxious about them. She has also noticed that she has felt hot the last few nights. She denies sharp chest pain, dizziness, syncope, nausea, edema, or orthopnea. She notes a mild cough over the last week but is unsure it is related as she has chronic issues with allergies and sinus drainage. Her father of an MO but it was attributed to a viral infection. No other known history of heart disease in the family. Pharmacologic Nuclear Stress Report 07/30/24 - negative for inducible ischemia, normal myocardial thickening and wall motion, LVEF 53% ECHO 06/18/24 - normal LV cavity size, LV wall thickness moderately increased (concentric), LV outflow tract is narrowed but nonobstructive, septal motion is abnormal c/w LBBB, regional LV wall motion o/w normal, LVEF 60-64%, mildly abnormal LV diastolic function (grade I), mild aortic valve sclerosis, trace mitral insufficiency Admission Exam Per Admitting Provider See H&P Discharge Exam Constitutional: Alert up and ambulating in room postcardiac cath HEENT: Mucous membranes moist. Lungs: Clear to auscultation, decreased, no wheezes rales or rhonchi CV: S1-S2, regular Abdomen: Soft, nontender, nondistended Extremities: No significant edema, right wrist no significant hematoma or tenderness Neuro: No focal deficits Psych: Cooperative, normal mood Updated Medication List Medication Instructions Recorded Confirmed Type apixaban 5 mg tablet (Eliquis) 5 mg PO BID 08/22/25 08/22/25 History atorvastatin 10 mg tablet 10 mg PO QAM 08/22/25 08/22/25 History bimatoprost 0.01 % eye drops 1 drp OPB HS 08/22/25 08/22/25 History (Lumigan) brimonidine 0.1 % eye drops 1 drp OPB BID 08/22/25 08/22/25 History fluticasone propionate 50 2 spray intranasal DAILY 08/22/25 08/22/25 History mcg/actuation nasal spray,suspension loratadine 10 mg tablet 10 mg PO HS 08/22/25 08/22/25 History losartan 50 mg-hydrochlorothiazide 1 tab PO QAM 08/22/25 08/22/25 History 12.5 mg tablet guaifenesin 600 mg tablet, 600 mg PO Q12 PRN cough #30 tabs 08/23/25 Rx extended release 12 hr (Mucinex) metoprolol tartrate 25 mg tablet 25 mg PO BID #60 tabs 08/23/25 Rx Hospital Stay Data Consultations 08/22/25 13:57 Consult Cardiology Stat ED Decision to Admit Stat Procedures Performed Operation Date: 08/23/25 11:00 Actual Procedures p Cineradiography w/Routine Exam - David Heck MD p Cath, Left with Cors and Vent - David Heck MD Diagnostic Imagining Performed 08/23/25 06:06 CL Cath Imgs for PACS use only Routine Reviewed imaging, laboratory and diagnostic studies. Pertinent findings as below. Cardiac cath, no occlusive coronary artery disease WBCs 3.0 Hemoglobin 12.6 Platelets of 175 Electrolytes within normal range Creatinine 0.82 Hemoglobin A1c 6.3% Triglycerides 182 Total cholesterol 222 LDL 123 HDL 63 COVID, flu, RSV negative Pending Results Patient Have Any Pending Studies at Discharge: No Discharge Instructions Given to Patient (Per Discharging Provider) ACTIVITY RECOMMENDATIONS: Excess manipulation of the wrist should be avoided for the next 24-48 hours. * No lifting over 2 pounds (approximately a 1/2 gallon of milk) with the utilized arm for 24 hours. * No strenuous activity such as bowling or tennis for 3 days. * Keep the site of the procedure covered with a bandage for 24 hours. *You may shower the day after the procedure. Do not take a tub bath or submerge the puncture site in water for the next 3 days. *Do not operate any motorized equipment for 3 days. SPECIAL CARE INSTRUCTIONS: The site may be slightly bruised and sore following your procedure. Should any of the following occur, contact the DrKelechi who performed your procedure. 1. Redness/inflammation, swelling, chills, or fever, or colored drainage at procedure site within 3-7 days after your procedure. 2. Coldness, discoloration, ongoing numbness, severe pain, or swelling. Expect mild tingling of hand and tenderness at the puncture site for up to three days. If this persists beyond three days, or other symptoms develop, notify the Dr. who performed your procedure. BLEEDING: If the procedure site on your wrist begins to bleed, do not panic 1. Place 1 or 2 fingers firmly just slightly above the insertion site to stop the bleeding. You may be able to feel your pulse as you hold pressure. 2. Lift your finger after 5 minutes to see if the bleeding has stopped. 3. Once the bleeding has stopped, gently wipe the wrist area clean with a bandage. * If the bleeding from your wrist does not stop after 10 minutes, or if there is a large amount of bleeding or spurting, call 911 (do not drive yourself to the hospital). SKIN IRRITATION: * You may experience some redness and/or swelling in the area where radiation was administered. If any skin irritation occurs, please contact your family physician. FOLLOW UP VISIT: Keep any scheduled doctor appointments. Total Time Total Time Spent Total Time Spent (In Minutes): 40
[2025-08-23 16:57] VITALS: BP 143/85; PULSE 67; O2SAT 98
--- NOTE | 2025-08-24 06:01 | Electrocardiogram Report ---
Test Reason : Blood Pressure : */* mmHG Vent. Rate : 76 BPM Atrial Rate : 76 BPM P-R Int : 168 ms QRS Dur : 134 ms QT Int : 434 ms P-R-T Axes : 47 -52 26 degrees QTcB Int : 488 ms Normal sinus rhythm Left axis deviation Left bundle branch block Abnormal ECG No previous ECGs available Confirmed by Dayron Liz ([id number]) on 08/24/2025 6:01:22 AM Referred By: REFERRED SELF Confirmed By: Dayron Liz
--- NOTE | 2025-08-24 06:02 | Electrocardiogram Report ---
Test Reason : Blood Pressure : */* mmHG Vent. Rate : 64 BPM Atrial Rate : 64 BPM P-R Int : 190 ms QRS Dur : 136 ms QT Int : 458 ms P-R-T Axes : 46 -58 -19 degrees QTcB Int : 472 ms Normal sinus rhythm Left axis deviation Left bundle branch block Abnormal ECG When compared with ECG of 22-Aug-2025 09:10, No significant change Confirmed by Dayron Liz ([id number]) on 08/24/2025 6:01:40 AM Referred By: REFERRED SELF Confirmed By: Dayron Liz
== END 2025-08-23 16:35 | disposition home or self-care (01) | DRG 287 ==
LOC: ED 08:52 → 2S 14:54 → SUATTDRO 14:54 → INTOOBSV 14:54 → 2S 16:10